=== PATIENT | male | born 1990 | race Caucasian/White ===

== ENCOUNTER → 2016-11-27 | Outpatient (CLI) | payer OTHER ==
--- NOTE | 2016-11-27 15:54 | RAD ---
3 views left foot, 3 views left ankle 11/27/2016 2:00 AM Indication: PAIN Comparison: None Findings: There is no fracture or dislocation identified. Articular surfaces are uninterrupted. Soft tissues are unremarkable. Impression: No evidence of acute osseous abnormality involving the left foot or ankle
== END | disposition home or self-care (01) ==
LOC: DXRAD 15:14
PROVIDERS: ATTEND Nurse Practitioner Family
DX: M25.572 Pain in left ankle and joints of left foot (principal)
CPT/HCPCS: 73610; 73630